=== PATIENT | female | born 1975 | race American Indian/Alaskan Native ===

== ENCOUNTER 2016-12-19 09:45 | Inpatient (IN) | payer SELFPAY ==
--- NOTE | 2016-12-19 10:56 | Emergency Department Report ---
Chief Complaint: Abdominal Pain Stated Complaint: CONSTIPATION Time Seen by Provider: 12/19/16 10:54 - HPI History of Present Illness: Patient here complaining of constipation for 3 weeks. She said she's had it happened to her before and she had to be disimpacted. Patient has a history of scleroderma and constipation. She denies any abdominal pain and said that she' s tried several laxatives without any relief. Denies any fever or chills. Denies any urinary burning frequency or urgency. Patient said it's difficult to get lab work on her CBC is ultrasound to find her vein in her neck to draw labs. - ROS Review of Systems: All systems are negative unless stated in HPI above. - Exam Vital Signs: Vital Signs 12/19/16 10:35 Temperature 98.2 F Pulse Rate 130 H Respiratory 20 Rate Blood Pressure 131/87 O2 Sat by Pulse 98 Oximetry Physical Exam: This is a 5-year-old female well-nourished well-developed in no acute distress. Abdomen: Tender to palpate in all quadrants, no guarding or rebound tenderness. Mildly distended and no CVA tenderness. Audible bowel sounds. MSE screening note: Focused history and physical exam performed. Due to findings the following was ordered:see mdm ED Medical Decision Making - Medical Decision Making Medical decision making: Patient seen by provider in triage area. Appropriate protocol activated and patient to main ED to be seen by physician. ED Disposition for MSE Condition: Stable Instructions: Abdominal Pain (ED)
--- NOTE | 2016-12-19 11:46 | XRay Report ---
ABDOMEN RADIOGRAPHS INDICATION: Constipation. COMPARISON: 05/17/2014 FINDINGS: Frontal abdominal radiographs demonstrate large colonic stool, greatest along the descending colon and much increased since the prior exam. No definite focal suspicious opacifications, pneumatosis or pneumoperitoneum. Stable cholecystectomy clips. Clear visualized lung bases. Unremarkable bones. CONCLUSION: Constipation and cholecystectomy, as described. Please correlate. Thank you for the opportunity to participate in this patient's care.
[2016-12-19 14:11] LABS: Bacteria,Urine 1+ /HPF (Negative); Bilirubin,Urine NEG (Negative); Blood,Urine MOD (Negative); Granular Casts,Urine 1 /LPF; Ketones,Urine 80 mg/dL (Negative); Leukocyte Esterase,Urine SM (Negative); Mucus,Urine 1+ /HPF; Nitrite,Urine NEG (Negative); Urobilinogen,Urine < 2.0 mg/dL (<2.0)
--- NOTE | 2016-12-20 00:07 | Emergency Department Report ---
ED General Adult HPI - General Chief complaint: Abdominal Pain Stated complaint: CONSTIPATION Time Seen by Provider: 12/19/16 10:54 Source: patient Mode of arrival: Ambulatory Limitations: No Limitations - History of Present Illness Initial comments: 41-year-old female presents to the emergency department complaining of constipation. Patient states she has not had a bowel movement in 3 weeks. She has been using an herbal supplement without relief. Her primary care doctor prescribed MiraLAX yesterday, again with no relief. She denies abdominal pain, nausea, or vomiting. Patient reports she has had a history of constipation requiring disimpaction. There are no other complaints. -: Gradual, week(s) (3) Severity scale (0 -10): 0 Improves with: none Worsens with: none Associated Symptoms: denies other symptoms - Related Data Home Medications Medication Instructions Recorded Confirmed Last Taken No Known Home Medications [No 05/16/14 12/20/16 Unknown Reported Home Medications] Allergies Allergy/AdvReac Type Severity Reaction Status Date / Time No Known Allergies Allergy Unverified 05/16/14 13:37 ED Review of Systems ROS: Stated complaint: CONSTIPATION Other details as noted in HPI Comment: All other systems reviewed and negative Gastrointestinal: constipation ED Past Medical Hx - Past Medical History Previous Medical History?: Yes Hx Congestive Heart Failure: No Hx Diabetes: No Hx Asthma: No Hx COPD: No Additional medical history: scleroderma, Constipation - Surgical History Past Surgical History?: Yes Additional Surgical History: Cholecystectomy - Family History Family history: no significant - Social History Smoking Status: Never Smoker Substance Use Type: Non Opiate Pain, Prescribed, Other - Medications Home Medications: Home Medications Medication Instructions Recorded Confirmed Last Taken Type No Known Home Medications [No 05/16/14 12/20/16 Unknown History Reported Home Medications] ED Physical Exam - General Limitations: No Limitations General appearance: alert, in no apparent distress - Head Head exam: Present: atraumatic, normocephalic - Eye Eye exam: Present: normal appearance, PERRL, EOMI - ENT ENT exam: Present: normal exam, normal orophraynx, mucous membranes moist - Neck Neck exam: Present: normal inspection, full ROM. Absent: tenderness - Respiratory Respiratory exam: Present: normal lung sounds bilaterally. Absent: respiratory distress - Cardiovascular Cardiovascular Exam: Present: normal rhythm, tachycardia, normal heart sounds - GI/Abdominal GI/Abdominal exam: Present: soft, diminished bowel sounds. Absent: distended, tenderness - Rectal Rectal exam: Present: normal inspection, normal rectal tone, heme (-) stool, other (large amount of stool noted in the proximal rectal vault. This stool is barely palpable on digital rectal exam.) - Extremities Exam Extremities exam: Present: normal inspection, full ROM. Absent: tenderness - Back Exam Back exam: Present: normal inspection, full ROM. Absent: tenderness - Neurological Exam Neurological exam: Present: alert, oriented X3. Absent: motor sensory deficit - Skin Skin exam: Present: warm, dry, other (sclerotic skin changes noted consistent with scleroderma.) ED Course Vital Signs 12/19/16 12/19/16 12/20/16 10:35 11:01 00:34 Temperature 98.2 F Pulse Rate 130 H 118 H 110 H Respiratory 20 18 Rate Blood Pressure 131/87 Blood Pressure 131/85 [Left] O2 Sat by Pulse 98 99 Oximetry 12/20/16 12/20/16 12/20/16 00:38 02:00 04:00 Temperature Pulse Rate 108 H 106 H Respiratory 18 18 18 Rate Blood Pressure Blood Pressure 128/80 128/82 [Left] O2 Sat by Pulse 99 99 99 Oximetry 12/20/16 12/20/16 12/20/16 06:00 07:20 07:25 Temperature 98.1 F Pulse Rate 103 H 98 H Respiratory 18 20 Rate Blood Pressure Blood Pressure 128/80 [Left] O2 Sat by Pulse 99 100 100 Oximetry 12/20/16 07:31 Temperature Pulse Rate Respiratory Rate Blood Pressure 121/72 Blood Pressure [Left] O2 Sat by Pulse 100 Oximetry - Reevaluation(s) Reevaluation #1: 12/20/16 00:19 I do not feel that the patient's stool is amenable to her manual disimpaction at this time due to its proximal location. Attempting soapsuds enema. Reevaluation #2: 12/20/16 14:57 Soap suds enema was unsuccessful last night. Patient was admitted to the hospitalist for GI consultation and further management. - EJ/Peripheral Line Arm L Time Out Performed: Yes Indications: nurses unable to establis Skin Cleansed in Sterile Fashion: Yes Size: 20 Dressing Placed: Tegaderm, other (Steri-Strips) Patient Tolerated Procedure: well Additional Comments: Ultrasound was used to place a peripheral IV ED Medical Decision Making - Lab Data Result diagrams: 12/20/16 02:00 - Differential Diagnosis constipation, fecal impaction, dehydration Critical care attestation.: If time is entered above; I have spent that time in minutes in the direct care of this critically ill patient, excluding procedure time. ED Disposition Clinical Impression: Constipation by delayed colonic transit, Scleroderma Disposition: OP ADMITTED IP TO THIS HOSP Is pt being admited?: Yes Condition: Stable
[2016-12-20] MEDS ORDERED: NACL 0.9% 1000 ML 1,000 ML IV ONE (01:36)
--- NOTE | 2016-12-20 01:54 | Admit Criteria Form ---
Admission Criteria Documentation: ABDOMINAL PAIN: OBSERVATION CARE USE THIS FORM ONLY WHEN INPATIENT ADMISSION CRITERIA ARE NOT MET. (Place X for any and all applicable criteria): Placement for observation care is indicated for a patient with ANY ONE of the following(1)(2)(3)(4)(5))(6): []I. Suspected condition requiring continued monitoring (e.g., ectopic , appendicitis) [A] []II. Undiagnosed pain after evaluation and initial treatment with ANY ONE of the following: []a) Continued pain unrelieved by symptomatic treatment []b) Patient unable to maintain hydration status []c) Concerning finding on examination (e.g., increasing tenderness, focal abdominal finding) or diagnostic testing (e.g., air fluid level on x-ray) []III. A child whose situation includes ANY ONE of the following: []a) Clinical response to outpatient therapy uncertain []b) Outpatient supervision by parents or caregivers uncertain [X]IV. Other observation care needs. (Also use General Criteria: Observation Care). The original [facility] [employer] content created by [facility] [employer] has been revised. The portions of the content which have been revised are identified through the use of italic text, and [facility] has neither reviewed nor approved the modified material. All other unmodified content is copyright [facility]. Please see references footnoted in the original [facility] edition 2015 Admission Criteria Met: Yes
[2016-12-20 02:50] LABS: BUN/Creatinine Ratio TNR; Blood Urea Nitrogen TNR mg/dL (7-17); Calcium TNR mg/dL (8.4-10.2); Carbon Dioxide TNR mmol/L (22-30); Chloride TNR mmol/L (98-107); Glucose TNR mg/dL (65-100); Sodium TNR mmol/L (137-145)
[2016-12-20 02:51] LABS: Alanine Aminotransferase TNR units/L (7-56); Albumin TNR g/dL (3.9-5); Albumin/Globulin Ratio TNR %; Alkaline Phosphatase TNR units/L (35-129); Anion Gap TNR mmol/L; Bilirubin,Total TNR mg/dL (0.1-1.2); Potassium TNR mmol/L (3.6-5.0); Total Protein TNR g/dL (6.3-8.2)
[2016-12-20] MEDS ORDERED: FLEET PR ONE (05:18)
--- NOTE | 2016-12-20 05:48 | History and Physical Report ---
History of Present Illness Date of examination: 12/20/16 History of present illness: 41-year-old woman history of scleroderma comes emergency room with complaints of constipation. She has not had a bowel movement 3 weeks. She has been using herbal supplements, MiraLAX without any effect. She had soapsuds enema in the emergency room, no bowel movements as far. Also complaining of bilateral leg discomfort, she is concerned about clots in her legs Patient denies chest pain, palpitation, shortness of breath, cough, abdominal pain, hematochezia, dysuria, frequency, focal weakness, dysarthria, fever chills , polydipsia polyuria, hot or cold intolerance, easy bruisability, or rash or bleeding from mucosal membrane, rhinorrhea, epistaxis, earache, tinnitus, blurry vision, eye discharge, anxiety, depression. Other review of systems negative PAST SURGICAL HISTORY: Cholecystectomy SOCIAL HISTORY: Denies alcohol, tobacco, drugs FAMILY HISTORY: Hypertension Medications and Allergies Allergies Allergy/AdvReac Type Severity Reaction Status Date / Time No Known Allergies Allergy Unverified 05/16/14 13:37 Home Medications Medication Instructions Recorded Confirmed Last Taken Type No Known Home Medications [No 05/16/14 05/16/14 Unknown History Reported Home Medications] Exam - Physical Exam Narrative exam: Gen. appearance: Patient lying in bed, no apparent distress HEENT: Normocephalic, atraumatic, pupils equally round and reactive to light, extraocular movement intact, and no sclericterus,. No JVD or thyromegaly or nodule,neck supple, no carotid bruit ,mucous membranes moist, no exudate or erythema Heart: S1, S2, regular rate and rhythm Lungs: Clear to auscultation bilaterally, breathing comfortable Abdomen: Positive bowel sounds, nontender, nondistended, no organomegaly Extremity: No edema, cyanosis, clubbing Skin: No rash, nodules, warm, dry Neuro: Oriented 3, cranial nerves II-12 intact, speech is fluent, motor and sensory intact - Constitutional Vitals: Temp Pulse Resp BP Pulse Ox 98.2 F 110 H 18 131/85 99 12/19/16 10:35 12/20/16 00:34 12/20/16 00:38 12/20/16 00:34 12/20/16 00:38 Results - Labs CBC & Chem 7: 12/20/16 02:00 - Imaging and Cardiology EKG: image reviewed Abdominal x-ray: report reviewed Assessment and Plan Fecal impaction Leg discomfort rule out DVT Scleroderma Admit medicine Start IV fluids, give further soapsuds enema Consult GI, obtain Doppler of lower extremity, start DVT prophylaxis
[2016-12-20] MEDS ORDERED: TYLENOL PO PRN (08:00)
[2016-12-20] MEDS ORDERED: MILK OF MAGNESIA PO PRN (08:00)
--- NOTE | 2016-12-20 08:13 | Admit Criteria Form ---
Admission Criteria Documentation: GASTROENTEROLOGY GRG Clinical Indications for Admission to Inpatient Care (Place 'X' for any and all applicable criteria): Hospital admission is needed for appropriate care of the patient because of ANY ONE of the following: [ ]I. Hemoperitoneum(7) [ ]II. Ascites requiring acute treatment indicated by ANY ONE of the following( 8)(9): [ ]a) Hemodynamic instability remaining after emergency or observation level care (as appropriate) [ ]b) Peritoneal signs present (eg, abdominal rigidity, rebound tenderness, absent bowel sounds) [ ]c) Tachypnea, Hypoxemia, or other respiratory symptoms remain after emergency or observation level care (as appropriate) [ ]d) Suspected infected ascites as indicated by ANY ONE of the following: [ ]i) Temperature greater than 100 degrees F (37.8 degrees C) [ ]ii) Abdominal pain or tenderness not relieved by paracentesis [ ]iii) Systemic signs of infection (eg, elevated WBC count, fever) [ ]iv) Ascitic fluid analysis consistent with infection ( eg, elevated WBC count): [ ]v) Vital sign abnormality [ ]III. Suspected acute intra-abdominal process indicated by ANY ONE of the following(1)(2)(3)(4)(5): [ ]a) Hemodynamic instability [ ]b) Peritoneal signs present (eg, abdominal rigidity, rebound tenderness, absent bowel sounds) [ ]c) Bowel obstruction suspected (eg, severe vomiting, abdominal distension) [ ]d) Suspected mesenteric ischemia or ischemic colitis(6) [ ]e) Other signs or symptoms of acute abdominal disease (eg, severe pain, free air): [ ]IV. Severe liver disease indicated by ANY ONE of the following(8)(9)(10)(11)( 12)(13)(14): [ ]a) Acute hepatitis (eg, transaminase level greater than 1000 IU/L) [ ]b) Acute elevation of prothrombin time to more than 50% above normal or INR greater than 1.5 [ ]c) Bilirubin greater than 20 mg/dL (342 micromoles/L) (15) [ ]d) New-onset or worsening hepatic encephalopathy [ ]e) Acute liver necrosis [ ]f) Vomiting or dehydration that is severe of persistent [ ]g) Hemodynamic instability due to liver disease [ ]h) Acute renal failure [ ]i) Hepatic abscess [ ]j) Dehydration that is severe or persistent [ ]k) Hepatic hydrothorax(21) [ ]l) Other indications of severe liver disease (eg, persistent fever , ingestion of hepatotoxin) [ ]V. Severe diarrhea indicated by ANY ONE of the following(17)(18)(19)(20)(21)( 22)(23): [ ]a) High fever or other high-risk infection situation [ ]b) Intractable bloody diarrhea (eg, more than 6 bloody stools per day) [ ]c) Suspected Clostridium difficile-associated diarrhea(24) [ ]d) Change in mental status that persists after emergency or observation level care (as appropriate) [ ]e) Severe dehydration (eg, greater than 9% loss of body weight in children) [ ]f) Inability to maintain hydration [ ]g) Peritoneal signs present (eg, abdominal rigidity, rebound tenderness, absent bowel sounds) [ ]h) Abdominal ischemia suspected(6) [ ]i) Hemodynamic instability that persists after emergency or observation level care (as appropriate) [ ]j) Severe electrolyte abnormalities requiring inpatient care [ ]k) Acute renal failure [ ]. Suspected toxic megacolon(5)(6) [ ]VII.Severe dysphagia indicated by ANY ONE of the following(25)(26): [ ]a) Suspected esophageal perforation or fistula(27) [ ]b) Suspected cause that requires inpatient care (eg, caustic ingestion, severe esophagitis) (28) [ ]c) Severe dehydration (eg, greater than 9% loss of body weight in children) [ ]d) Inability to manage secretions or maintain hydration [ ]e) Hemodynamic instability that persists after emergency or observation level care (as appropriate) [ ]f) Severe electrolyte abnormalities requiring inpatient care [ ]g) Acute renal failure [ ]VIII.Vomiting and ANY ONE of the following (29)(30)(31)(32): [ ]a) High fever or other high-risk infection situation [ ]b) Change in mental status that persists after emergency or observation level care (as appropriate) [ ]c) Severe dehydration (e.g., greater than 9% loss of body weight in children) [ ]d) Peritoneal signs present (e.g., abdominal rigidity, rebound tenderness, absent bowel sounds) [ ]e) Hemodynamic instability that persists after emergency or observation level care (as appropriate) [ ]f) Severe electrolyte abnormalities requiring inpatient care [ ]g) Acute renal failure [ ]h) Bowel obstruction suspected (e.g., severe vomiting, abdominal distension) [ ]i) Vomiting that is severe or persistent after medical treatment [ ]IX. Significant dehydration indicated by ANY ONE of the following(23)(24)(25) [ ]a) Clinical findings of severe dehydration indicated by ANY ONE of the following: [ ]i) Acute loss of weight from baseline (5% of body weight in adults, 9% in pediatric patients) [ ]ii) Hemodynamic instability [ ]iii) Acute renal failure [ ]iv) Serum sodium greater than 150 mEq/L (mmol/L) [ ]b) Dehydration that is persistent indicated by ALL of the following: [ ]i) Oral rehydration therapy not tolerated or insufficient to adequately correct dehydration [ ]ii) Appropriate intravenous treatment (eg, fluids) does not readily correct dehydration hours of (ie, after 12 to 24 of treatment) [ ]X. Gastroparesis and ANY ONE of the following(37)(38)(39): [ ]a) Dehydration that is severe or persistent [ ]b) Severe electrolyte abnormalities requiring inpatient care [ ]c) Acute renal failure [ ]d) Vomiting that is severe or persistent [ ]XI. Complications of transplanted liver indicated by ANY ONE of the following (40)(41): [ ]a) Acute graft rejection requiring inpatient management (eg, intravenous immunosuppression)(42) [ ]b) Failure of transplanted liver as indicated by ANY ONE of the following: [ ]i) Acute hepatitis (eg, transaminase level greater than 1000 International Units per liter (IU/L)) [ ]ii) Acute elevation of prothrombin time to more than 50% above baseline or INR greater than 1.5 [ ]iii) Bilirubin greater than 20 mg/dL (342 micromoles/L) [ ]iv) New-onset or worsening hepatic encephalopathy [ ]v) Acute elevation of serum ammonia level (eg, greater than 210 mcg/dL (150 micromoles/L)) [ ]vi) Acute liver necrosis [ ]c) Infection requiring inpatient management (eg, Hemodynamic instability, need for intravenous antimicrobial treatment)(43)(44)(45)(46)(47)(48)(49)(50) [ ]d) Other complication of transplanted liver (eg, thrombosis, autoimmune hepatitis, variceal bleeding) requiring inpatient management(51)(52) [ ]XII Complications of transplanted pancreas indicated by ANY ONE of the following(53): [ ]a) Acute graft rejection requiring inpatient management (eg, intravenous immunosuppression)(42)(54) [ ]b) Failure of transplanted pancreas as indicated by ANY ONE of the following: [ ]i) Serum amylase greater than 3 times the upper limit of normal or baseline [ ]ii) Serum lipase greater than 3 times the upper limit of normal or baseline [ ]iii) Imaging findings consistent with pancreatic inflammation or necrosis [ ]c) Infection requiring inpatient management (eg, Hemodynamic instability, need for intravenous antimicrobial treatment)(43)(44)(45)(46)(47)(48)(49)(50) [ ]d) Other complication of transplanted liver (eg, thrombosis, autoimmune hepatitis, variceal bleeding) requiring inpatient management(51)(52) [X]X. Gastroenterology condition and ALL of the following: [X]a) Symptom or finding for which emergency and observation care have failed or are not considered appropriate (Also use General Criteria: Observation Care as appropriate) [X]b) Presence of ANY ONE of the following: [X]i) A General Admission Criteria [ ]ii) A Pediatric General Admission Criteria. The original [facility] [employer] content created by [facility] [employer] has been revised. The portions of the content which have been revised are identified through the use of italic text or in bold,and [facility] has neither reviewed nor approved the modified material. All other unmodified content is copyright [facility]. Please see references footnoted in the original [facility] edition 2016 Admission Criteria Met: Yes
[2016-12-20] MEDS: ZOFRAN IV PRN (09:10)
[2016-12-20] MEDS ORDERED: LOVENOX SUB-Q SCH (10:00)
[2016-12-20] MEDS ORDERED: DULCOLAX PR PRN (10:00)
[2016-12-20] MEDS ORDERED: ZOFRAN PO PRN (11:02)
[2016-12-20] MEDS ORDERED: ZOFRAN ODT PO PRN (12:14)
--- NOTE | 2016-12-20 13:42 | Gastroenterology Consultation ---
<SHARYN LARES - Last Filed: 12/20/16 14:05> History of Present Illness - Reason for Consult Consult date: 12/20/16 Requesting physician: UCHE SHEPARD - History of Present Illness Ms. Langford is a 41 y/o female admitted with 3 week hx of constipation. She reports she has not had a BM in 3 weeks. She has baseline constipation since 2013 and typically has to take an herbal medication twice per week for BM. She also states she is now vomiting. She has a hx of sigmoid volvulous that resolved on it own in 2013 during attempted colonoscopy. She has a hx of scleroderma. Abdominal Xray significant for constipation. Past History Past Medical History: other (scleroderma) Past Surgical History: cholecystectomy Social history: denies: smoking, alcohol abuse Family history: hypertension Medications and Allergies Allergies Allergy/AdvReac Type Severity Reaction Status Date / Time No Known Allergies Allergy Unverified 05/16/14 13:37 Home Medications Medication Instructions Recorded Confirmed Last Taken Type No Known Home Medications [No 05/16/14 12/20/16 Unknown History Reported Home Medications] Active Meds: Active Medications Acetaminophen (Tylenol) 650 mg PO Q4H PRN PRN Reason: Pain MILD(1-3)/Fever >100.5/KILLIAN Bisacodyl (Dulcolax) 10 mg MN QDAY PRN PRN Reason: Constipation unrelieved by MOM Enoxaparin Sodium (Lovenox) 40 mg SUB-Q QDAY LYNDSAY Last Admin: 12/20/16 12:15 Dose: Not Given Sodium Chloride (Nacl 0.45% 1000 Ml) 1,000 mls @ 125 mls/hr IV DIRECT LYNDSAY Magnesium Hydroxide (Milk Of Magnesia) 30 ml PO Q4H PRN PRN Reason: Constipation Ondansetron HCl (Zofran) 4 mg IV Q8H PRN PRN Reason: Nausea And Vomiting Last Admin: 12/20/16 09:10 Dose: 4 mg Ondansetron HCl (Zofran Odt) 4 mg PO Q8H PRN PRN Reason: Nausea And Vomiting Last Admin: 12/20/16 12:19 Dose: 4 mg Review of Systems - Review of Systems All systems: negative Gastrointestinal: abdominal pain, vomiting, constipation Exam - Constitutional Vital Signs: Temp Pulse Resp BP Pulse Ox 98.1 F 98 H 20 121/72 100 01/19/17 07:20 12/20/16 07:20 12/20/16 07:20 12/20/16 07:31 12/20/16 07:31 General appearance: no acute distress - EENT Eyes: EOM intact ENT: hearing intact - Neck Neck: supple - Respiratory Respiratory: bilateral: CTA - Cardiovascular Rhythm: regular Heart Sounds: Present: S1 & S2 - Gastrointestinal General gastrointestinal: Present: soft, distended, hypoactive bowel sounds - Integumentary Integumentary: Present: warm, dry - Neurologic Neurological: alert and oriented x3 - Psychiatric Psychiatric: appropriate mood/affect, cooperative - Labs CBC & Chem 7: 12/20/16 02:00 Assessment and Plan 1. Constipation per Abdominal xray (obstipation) -Patient typically takes herbal medications for BM twice per week. No BM x 3 weeks. -Incomplete colonoscopy 2013 for resolved sigmoid volvulous. -Start PO golyte prep. Patient is to "sip" throughout day. <ELIZ DURANT - Last Filed: 12/20/16 17:48> History of Present Illness - History of Present Illness GI Attending: I have performed a face to face evaluation on Ms. Langford and agree with the above note of Hoda Lares NP. I know her from prior admissions and she had a sigmoid volvulus at that time. She has scleroderma with resultant bowel dysmotility, which explains her constipation. She may take a Go-Lytely prep and will re-assess in the AM. Once she starts to have BM's, will start her on a regular bowel regimen with Miralax. OK to have clears. Medications and Allergies Active Meds: Active Medications Acetaminophen (Tylenol) 650 mg PO Q4H PRN PRN Reason: Pain MILD(1-3)/Fever >100.5/KILLIAN Bisacodyl (Dulcolax) 10 mg MN QDAY PRN PRN Reason: Constipation unrelieved by MOM Enoxaparin Sodium (Lovenox) 40 mg SUB-Q QDAY LYNDSAY Last Admin: 12/20/16 12:15 Dose: Not Given Sodium Chloride (Nacl 0.45% 1000 Ml) 1,000 mls @ 125 mls/hr IV DIRECT LYNDSAY Last Admin: 12/20/16 17:10 Dose: 125 mls/hr Magnesium Hydroxide (Milk Of Magnesia) 30 ml PO Q4H PRN PRN Reason: Constipation Ondansetron HCl (Zofran) 4 mg IV Q8H PRN PRN Reason: Nausea And Vomiting Last Admin: 12/20/16 09:10 Dose: 4 mg Ondansetron HCl (Zofran Odt) 4 mg PO Q8H PRN PRN Reason: Nausea And Vomiting Last Admin: 12/20/16 12:19 Dose: 4 mg Exam - Constitutional Vital Signs: Temp Pulse Resp BP Pulse Ox 98.1 F 98 H 20 121/72 100 12/20/16 07:20 12/20/16 07:20 12/20/16 07:20 12/20/16 07:31 12/20/16 07:31 - Labs CBC & Chem 7: 12/20/16 16:50 Lab Results: Laboratory Results - last 24 hr 12/20/16 16:50 Sodium 141 Potassium 3.5 L Chloride 103.5 Carbon Dioxide 20 L Anion Gap 21 BUN 2 L Creatinine 0.5 L Estimated GFR > 60 BUN/Creatinine Ratio 4.00 Glucose 104 H Calcium 8.5 Total Bilirubin 0.3 AST 11 ALT 9 Alkaline Phosphatase 66 Total Protein 7.2 Albumin 3.3 L Albumin/Globulin Ratio 0.8
[2016-12-20] MEDS ORDERED: GOLYTELY PO ONE (15:00)
[2016-12-20] MEDS: NACL 0.45% 1000 ML 1,000 ML IV SCH (17:10)
[2016-12-20 17:45] LABS: Alanine Aminotransferase 9 units/L (7-56); Albumin 3.3 g/dL (3.9-5); Albumin/Globulin Ratio 0.8 %; Alkaline Phosphatase 66 units/L (35-129); Anion Gap 21 mmol/L; Bilirubin,Total 0.3 mg/dL (0.1-1.2); Blood Urea Nitrogen 2 mg/dL (7-17); Calcium 8.5 mg/dL (8.4-10.2); Carbon Dioxide 20 mmol/L (22-30); Chloride 103.5 mmol/L (98-107); Glucose 104 mg/dL (65-100); Potassium 3.5 mmol/L (3.6-5.0); Sodium 141 mmol/L (137-145); Total Protein 7.2 g/dL (6.3-8.2)
[2016-12-20 17:47] LABS: Basophils % (Auto) 0.3 % (0.0-1.8); Eosinophils % (Auto) 0.8 % (0.0-4.3); Hematocrit 35.1 % (30.3-42.9); Hemoglobin 11.5 gm/dl (10.1-14.3); Mean Corpuscular HGB Conc 33 % (30-34); Mean Corpuscular Hemoglobin 26 pg (28-32); Mean Corpuscular Volume 79 fl (79-97); Platelet Count 206 K/mm3 (140-440); Red Blood Count 4.43 M/mm3 (3.65-5.03); Red Cell Distribution Width 15.3 % (13.2-15.2)
[2016-12-20] MEDS: PERCOCET 5/325 PO PRN (21:26)
[2016-12-20] MEDS: LOVENOX SUB-Q SCH (21:27)
[2016-12-21] MEDS: ZOFRAN IV PRN ×2 (01:12→13:40)
[2016-12-21] MEDS: NACL 0.45% 1000 ML 1,000 ML IV SCH ×3 (02:23→22:24)
--- NOTE | 2016-12-21 07:19 | Gastroenterology Progress Note ---
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 She responded well to the bowel prep. Rec: 1) Pt informed to start Miralax 17gm 1-2x/day upon discharge No further GI w/u needed. Please call with questions. Thank you! Subjective Date of service: 12/21/16 Principal diagnosis: Constipation Interval history: Pt seen/examined this AM. Had multiple BM's with Golytely. No other acute overnight events. Objective - Constitutional Vitals: Temp Pulse Resp BP Pulse Ox 97.4 F L 105 H 20 141/92 100 12/21/16 02:04 12/21/16 02:04 12/21/16 02:04 12/21/16 02:04 12/20/16 20:54 General appearance: no acute distress, other (classic phenotypic features of scleroderma) - Neck Neck: supple - Respiratory Respiratory: bilateral: CTA - Cardiovascular Rhythm: regular Heart Sounds: Present: S1 & S2 - Extremities Extremities: No edema - Gastrointestinal General gastrointestinal: Present: soft, non-tender, non-distended, normal bowel sounds - Neurologic Neurological: alert and oriented x3 - Psychiatric Psychiatric: appropriate mood/affect - Labs CBC & Chem 7: 12/20/16 16:50 12/20/16 16:50 Labs: Laboratory Results - last 24 hr 12/20/16 12/20/16 16:50 16:50 WBC 16.0 H RBC 4.43 Hgb 11.5 Hct 35.1 MCV 79 MCH 26 L MCHC 33 RDW 15.3 H Plt Count 206 Lymph % (Auto) 7.6 L [place] % (Auto) 8.0 H Eos % (Auto) 0.8 Baso % (Auto) 0.3 Lymph # 1.2 [place] # 1.3 H Eos # 0.1 Baso # 0.0 Seg Neutrophils % 83.3 H Seg Neutrophils # 13.3 H Sodium 141 Potassium 3.5 L Chloride 103.5 Carbon Dioxide 20 L Anion Gap 21 BUN 2 L Creatinine 0.5 L Estimated GFR > 60 BUN/Creatinine Ratio 4.00 Glucose 104 H Calcium 8.5 Total Bilirubin 0.3 AST 11 ALT 9 Alkaline Phosphatase 66 Total Protein 7.2 Albumin 3.3 L Albumin/Globulin Ratio 0.8
[2016-12-21 10:22] LABS: BUN/Creatinine Ratio 4.28; Blood Urea Nitrogen 3 mg/dL (7-17); Calcium 8.3 mg/dL (8.4-10.2); Carbon Dioxide 23 mmol/L (22-30); Glucose 123 mg/dL (65-100)
[2016-12-21 10:23] LABS: Potassium 3.4 mmol/L (3.6-5.0); Sodium 140 mmol/L (137-145)
[2016-12-21 10:33] LABS: Anion Gap 17 mmol/L
[2016-12-21] MEDS: KCL 10MEQ/100ML 100 ML IV SCH ×3 (13:20→17:54)
[2016-12-21] MEDS: PERCOCET 5/325 PO PRN (13:40)
--- NOTE | 2016-12-21 20:31 | Progress Note ---
Assessment and Plan Assessment and plan: Fecal impaction Leg discomfort rule out DVT Scleroderma Hospitalist Physical - Constitutional Vitals: Temp Pulse Resp BP Pulse Ox 97.6 F 97 H 16 127/75 100 12/21/16 16:30 12/21/16 16:30 12/21/16 16:30 12/21/16 16:30 12/21/16 16:30 Results - Labs CBC & Chem 7: 12/20/16 16:50 12/21/16 09:45 Labs: Laboratory Last Values WBC 16.0 K/mm3 (4.5-11.0) H 12/20/16 16:50 RBC 4.43 M/mm3 (3.65-5.03) 12/20/16 16:50 Hgb 11.5 gm/dl (10.1-14.3) 12/20/16 16:50 Hct 35.1 % (30.3-42.9) 12/20/16 16:50 MCV 79 fl (79-97) 12/20/16 16:50 MCH 26 pg (28-32) L 12/20/16 16:50 MCHC 33 % (30-34) 12/20/16 16:50 RDW 15.3 % (13.2-15.2) H 12/20/16 16:50 Plt Count 206 K/mm3 (140-440) 12/20/16 16:50 Lymph % (Auto) 7.6 % (13.4-35.0) L 12/20/16 16:50 [place] % (Auto) 8.0 % (0.0-7.3) H 12/20/16 16:50 Eos % (Auto) 0.8 % (0.0-4.3) 12/20/16 16:50 Baso % (Auto) 0.3 % (0.0-1.8) 12/20/16 16:50 Lymph # 1.2 K/mm3 (1.2-5.4) 12/20/16 16:50 [place] # 1.3 K/mm3 (0.0-0.8) H 12/20/16 16:50 Eos # 0.1 K/mm3 (0.0-0.4) 12/20/16 16:50 Baso # 0.0 K/mm3 (0.0-0.1) 12/20/16 16:50 Seg Neutrophils % 83.3 % (40.0-70.0) H 12/20/16 16:50 Seg Neutrophils # 13.3 K/mm3 (1.8-7.7) H 12/20/16 16:50 Sodium 140 mmol/L (137-145) 12/21/16 09:45 Potassium 3.4 mmol/L (3.6-5.0) L 12/21/16 09:45 Chloride 103.0 mmol/L (98-107) 12/21/16 09:45 Carbon Dioxide 23 mmol/L (22-30) 12/21/16 09:45 Anion Gap 17 mmol/L 12/21/16 09:45 BUN 3 mg/dL (7-17) L 12/21/16 09:45 Creatinine 0.7 mg/dL (0.7-1.2) 12/21/16 09:45 Estimated GFR > 60 ml/min 12/21/16 09:45 BUN/Creatinine Ratio 4.28 % 12/21/16 09:45 Glucose 123 mg/dL (65-100) H 12/21/16 09:45 Calcium 8.3 mg/dL (8.4-10.2) L 12/21/16 09:45 Total Bilirubin 0.3 mg/dL (0.1-1.2) 12/20/16 16:50 AST 11 units/L (5-40) 12/20/16 16:50 ALT 9 units/L (7-56) 12/20/16 16:50 Alkaline Phosphatase 66 units/L (35-129) 12/20/16 16:50 Total Protein 7.2 g/dL (6.3-8.2) 12/20/16 16:50 Albumin 3.3 g/dL (3.9-5) L 12/20/16 16:50 Albumin/Globulin Ratio 0.8 % 12/20/16 16:50 Urine Color Yellow (Yellow) 12/19/16 12:51 Urine Turbidity Clear (Clear) 12/19/16 12:51 Urine pH 5.0 (5.0-7.0) 12/19/16 12:51 Ur Specific [place] 1.018 (1.003-1.030) 12/19/16 12:51 Urine Protein 100 mg/dl mg/dL (Negative) 12/19/16 12:51 Urine Glucose (UA) Neg mg/dL (Negative) 12/19/16 12:51 Urine Ketones 80 mg/dL (Negative) 12/19/16 12:51 Urine Blood Mod (Negative) 12/19/16 12:51 Urine Nitrite Neg (Negative) 12/19/16 12:51 Ur Reducing Substances Not Reportable 12/19/16 12:51 Urine Bilirubin Neg (Negative) 12/19/16 12:51 Urine Ictotest Not Reportable 12/19/16 12:51 Urine Urobilinogen < 2.0 mg/dL (<2.0) 12/19/16 12:51 Ur Leukocyte Esterase Sm (Negative) 12/19/16 12:51 Urine WBC (Auto) 6.0 /HPF (0.0-6.0) 12/19/16 12:51 Urine RBC (Auto) 60.0 /HPF (0.0-6.0) 12/19/16 12:51 U Epithel Cells (Auto) 2.0 /HPF (0-13.0) 12/19/16 12:51 Urine Bacteria (Auto) 1+ /HPF (Negative) 12/19/16 12:51 Hyaline Casts 2 /LPF 12/19/16 12:51 Granular Casts 1 /LPF 12/19/16 12:51 Urine Mucus 1+ /HPF 12/19/16 12:51 Urine HCG, Qual Negative (Negative) 12/19/16 12:51
[2016-12-21] MEDS: LOVENOX SUB-Q SCH (22:22)
[2016-12-22] MEDS: PERCOCET 5/325 PO PRN (03:28)
[2016-12-22] MEDS: NACL 0.45% 1000 ML 1,000 ML IV SCH (05:55)
[2016-12-22] MEDS ORDERED: CATHFLO IV ONE (10:00)
[2016-12-22] MEDS ORDERED: WATER FOR INJ (PF) 10 ML ONE (10:32)
[2016-12-22 12:08] LABS: Hematocrit 31.7 % (30.3-42.9); Hemoglobin 10.6 gm/dl (10.1-14.3); Mean Corpuscular HGB Conc 33 % (30-34); Mean Corpuscular Hemoglobin 26 pg (28-32); Mean Corpuscular Volume 79 fl (79-97); Platelet Count 196 K/mm3 (140-440); Red Blood Count 4.02 M/mm3 (3.65-5.03); Red Cell Distribution Width 15.3 % (13.2-15.2); White Blood Count 10.3 K/mm3 (4.5-11.0)
[2016-12-22 13:06] LABS: Blood Urea Nitrogen 3 mg/dL (7-17); Calcium 8.3 mg/dL (8.4-10.2); Carbon Dioxide 28 mmol/L (22-30); Chloride 102.1 mmol/L (98-107); Glucose 97 mg/dL (65-100); Potassium 3.6 mmol/L (3.6-5.0); Sodium 140 mmol/L (137-145)
[2016-12-22 13:10] LABS: Anion Gap 14 mmol/L
--- NOTE | 2016-12-22 13:37 | Discharge Summary ---
Providers - Providers Date of Admission: 12/20/16 05:19 Date of discharge: 12/22/16 Attending physician: UCHE SHEPARD 12/20/16 09:31 Consult to PICC Line RN [CONS] Routine Reason For Exam: unable to obtain IV access Type Line:: PICC Primary care physician: [employer] Hospitalization Condition: Stable Disposition: DISCHARGED TO HOME OR SELFCARE Time spent for discharge: 35 min Core Measure Documentation - Palliative Care Palliative Care/ Comfort Measures: Not Applicable - Core Measures Any of the following diagnoses?: none Exam - Constitutional Vitals: Temp Pulse Resp BP Pulse Ox 97.8 F 108 H 18 124/84 100 12/22/16 08:00 12/22/16 08:00 12/22/16 08:00 12/22/16 08:00 12/22/16 08:00 Plan Activity: advance as tolerated Diet: low cholesterol, low salt Follow up with: PRIMARY CARE, [Primary Care Provider] - 7 Days Prescriptions: Magnesium Hydroxide [Milk of Magnesia] 30 ml PO Q4H PRN #10 oral.liqd PRN Reason: Constipation Polyethylene Glycol 3350 [Miralax 3350] 17 gm PO BID #60 packet
[2016-12-22 14:36] VITALS: BP 129/80
== END 2016-12-22 15:00 | disposition home or self-care (01) | DRG 390 ==
LOC: ED 09:45 → 3A 12-20 05:19
PROVIDERS: ADMIT Internal Medicine; ATTEND Internal Medicine
PROC: 05HQ33Z Insertion of Infusion Device into Left External Jugular Vein, Percutaneous Approach (ICD-10-PCS; principal; 2016-12-19)
PROC: B544ZZA Ultrasonography of Left Jugular Veins, Guidance (ICD-10-PCS; 2016-12-19)
DX: K56.41 Fecal impaction (principal); M34.9 Systemic sclerosis, unspecified; Z90.49 Acquired absence of other specified parts of digestive tract; Z82.49 Family history of ischemic heart disease and other diseases of the circulatory system
CPT/HCPCS: 36415; 74020; 80048; 80053; 81001; 81025; 85025; 93970; 96361; 96374; J1650; J2405; J2997; J3480; J7030; Q0162

== ENCOUNTER 2022-05-08 09:47 | Emergency (ER) | payer OTHER ==
[2022-05-08] MEDS ORDERED: ASPIRIN 325 MG TAB PO ONE (11:35)
--- NOTE | 2022-05-08 12:29 | XRay Report ---
CHEST 2 VIEWS INDICATION: chest pain. COMPARISON: None FINDINGS: Support devices: None. Heart: Within normal limits. Lungs/Pleura: No acute air space or interstitial disease. No significant pleural effusion. Prominen t bowel distention partially imaged upper abdomen. IMPRESSION: 1. Lungs clear. 2. Prominent bowel distention appears to be predominantly colon. Signer Name: Presley Au MD Signed: 05/08/2022 12:25 PM Workstation Name: [id number]
--- NOTE | 2022-05-08 12:37 | Electrocardiograph Report ---
[facility] Test Date: 2022-05-08 Test Time: 11:53:53 Pat Name: JADIEL SOSA Department: Room: Gender: F [employer]: LIBRADO : 1975 Requested By: ED DOC Order Number: [id number] Reading MD: Iman Villa Measurements Intervals [place] Rate: 88 P: 73 SC: 154 QRS: 84 QRSD: 100 T: 110 QT: 362 QTc: 439 Interpretive Statements Sinus rhythm Nonspecific T abnormalities, lateral leads No previous ECG available for comparison Electronically Signed On 05-08-2022 12:37:38 EDT by Iman Villa
[2022-05-08 12:58] LABS: Basophils % (Auto) 0.6 % (0.0-1.8); Eosinophils # (Auto) 0.1 K/mm3 (0.0-0.4); Eosinophils % (Auto) 1.8 % (0.0-4.3); Hematocrit 40.7 % (30.3-42.9); Hemoglobin 13.4 gm/dl (10.1-14.3); Lymphocytes # (Auto) 1.1 K/mm3 (1.2-5.4); Lymphocytes % (Auto) 18.8 % (13.4-35.0); Mean Corpuscular HGB Conc 33 % (30-34); Mean Corpuscular Volume 85 fl (79-97); Monocytes # (Auto) 0.4 K/mm3 (0.0-0.8); Monocytes % (Auto) 6.7 % (0.0-7.3); Platelet Count 217 K/mm3 (140-440); Red Blood Count 4.79 M/mm3 (3.65-5.03); Red Cell Distribution Width 15.2 % (13.2-15.2)
[2022-05-08 13:19] LABS: Alanine Aminotransferase 18 units/L (7-56); Albumin 4.3 g/dL (3.9-5); Blood Urea Nitrogen 10 mg/dL (7-17); Calcium 9.9 mg/dL (8.4-10.2); Hemolysis Index 5
[2022-05-08 13:31] LABS: BUN/Creatinine Ratio 14
[2022-05-09] MEDS ORDERED: SODIUM CHLORIDE 0.9% 1000 ML 1,000 ML IV ONE (01:53)
[2022-05-09] MEDS ORDERED: ONDANSETRON 4 MG/2 ML INJ IV ONE (01:54)
--- NOTE | 2022-05-09 02:00 | Emergency Department Report ---
ED Abdominal Pain HPI - General Chief Complaint: Dyspnea/Respdistress Stated Complaint: ABD PAIN/N/V CONSITPATION Source: patient Mode of arrival: Ambulatory Limitations: No Limitations - History of Present Illness Initial Comments: Patient is a 47-year-old female with history of abdominal periumbilical hernia, constipation, and scleroderma who presents for abdominal pain stating I believe my bowels are twisted. Patient denies history of Crohn's. Did not require resection for hernia repair last year. Patient has follow-up with GI and 5 days for colonoscopy. Patient denies fevers or chills. However does endorse nausea. Symptoms are exacerbated by p.o. intake. There is secondary complaint of bloating. Patient is 47 and questions menopausal last menstrual cycle was October 2021. Patient endorses not sexually active. No concern for or STI. MD Complaint: abdominal pain - Related Data Previous Rx's Medication Instructions Recorded Last Taken Type Magnesium Hydroxide [Milk of 30 ml PO Q4H PRN #10 oral.liqd 12/22/16 Unknown Rx Magnesia] polyethylene glycoL 3350 [Miralax 17 gm PO BID #60 packet 12/22/16 Unknown Rx 3350] Simethicone [Gas-X Ultra Strength] 180 mg PO Q6H PRN #30 cap 05/09/22 Unknown Rx Allergies Allergy/AdvReac Type Severity Reaction Status Date / Time No Known Allergies Allergy Unverified 05/16/14 13:37 ED Review of Systems ROS: Stated complaint: ABD PAIN/N/V CONSITPATION Other details as noted in HPI ED Past Medical Hx - Past Medical History Previous Medical History?: Yes Hx Congestive Heart Failure: No Hx Diabetes: No Hx Deep Vein Thrombosis: No Hx Asthma: No Hx COPD: No Hx HIV: No Additional medical history: scleroderma, Constipation - Surgical History Past Surgical History?: Yes Hx Pacemaker: No Hx Internal Defibrillator: No Additional Surgical History: Cholecystectomy - Social History Smoking Status: Never Smoker - Medications Home Medications: Home Medications Medication Instructions Recorded Confirmed Last Taken Type Magnesium Hydroxide [Milk of 30 ml PO Q4H PRN #10 oral.liqd 12/22/16 Unknown Rx Magnesia] polyethylene glycoL 3350 [Miralax 17 gm PO BID #60 packet 12/22/16 Unknown Rx 3350] Simethicone [Gas-X Ultra Strength] 180 mg PO Q6H PRN #30 cap 05/09/22 Unknown Rx ED Physical Exam - General Limitations: No Limitations ED Course Vital Signs 05/08/22 11:32 Temperature 97.9 F Pulse Rate 73 Respiratory 16 Rate Blood Pressure 187/120 [Left] O2 Sat by Pulse 94 Oximetry ED Medical Decision Making - Lab Data Result diagrams: 05/08/22 12:33 05/08/22 12:33 Labs 05/08/22 05/08/22 05/08/22 12:33 12:33 14:49 WBC 5.8 RBC 4.79 Hgb 13.4 Hct 40.7 MCV 85 MCH 28 MCHC 33 RDW 15.2 Plt Count 217 Lymph % (Auto) 18.8 [place] % (Auto) 6.7 Eos % (Auto) 1.8 Baso % (Auto) 0.6 Lymph # (Auto) 1.1 L [place] # (Auto) 0.4 Eos # (Auto) 0.1 Baso # (Auto) 0.0 Seg Neutrophils % 72.1 H Seg Neutrophils # 4.2 Sodium 141 Potassium 3.6 Chloride 102.1 Carbon Dioxide 24 Anion Gap 19 BUN 10 Creatinine 0.7 Estimated GFR > 60 BUN/Creatinine Ratio 14 Glucose 98 Calcium 9.9 Total Bilirubin 1.30 H AST 25 ALT 18 Alkaline Phosphatase 78 Troponin T < 0.010 < 0.010 Total Protein 9.2 H Albumin 4.3 Albumin/Globulin Ratio 0.9 - EKG Data EKG shows normal: sinus rhythm Rate: normal - EKG Data When compared to previous EKG there are: no significant change Interpretation: nonspecific ST-T wave surinder SR with non specific Twave abnormalities. No STEMI interp by ed attending. 05/09/22 04:39 - Radiology Data Radiology results: report reviewed, image reviewed ABDOMEN 2 VIEWS INDICATION / CLINICAL INFORMATION: abdominal pain constipation. COMPARISON: Abdomen 12/19/2016 FINDINGS: TUBES / LINES: None. BOWEL GAS PATTERN: Moderately dilated gas-filled loops of colon characteristic for ileus. FREE AIR / EXTRALUMINAL GAS: None seen. ADDITIONAL FINDINGS: Cholecystectomy clips right upper quadrant. Midline ventral abdominal wall hernia mesh. CHEST: Visualized chest shows no significant abnormality. IMPRESSION: 1. Moderate colonic ileus. Signer Name: Jacky Bates MD Signed: 05/09/2022 2:47 AM Workstation Name: [id number] Transcribed By: TL Dictated By: Jacky Bates MD Electronically Authenticated By: Jacky Bates MD Signed Date/Time: 05/09/22246 DD/ 5 TD/TT: CT ABDOMEN AND PELVIS WITHOUT CONTRAST INDICATION: abd pain. TECHNIQUE: Axial CT images were obtained through the abdomen and pelvis without IV contrast. All CT scans at this location are performed using CT dose reduction for ALARA by means of automated exposure control. COMPARISON: None available. FINDINGS: LOWER CHEST: Mild bronchiectasis right middle and both lower lobes. LIVER: No significant abnormality. GALLBLADDER: Surgically absent BILE DUCTS: No significant abnormality. PANCREAS: No significant abnormality. SPLEEN: No significant abnormality. ADRENALS: No significant abnormality. RIGHT KIDNEY and URETER: No significant abnormality. LEFT KIDNEY and URETER: No significant abnormality. STOMACH and SMALL BOWEL: No significant abnormality. COLON: Pneumatosis sigmoid and ascending colon moderately dilated fluid-filled loops of colon. APPENDIX: Normal. PERITONEUM: No free fluid. No free air. No fluid collection. LYMPH NODES: No significant adenopathy. AORTA and ARTERIES: No significant abnormality. IVC and VEINS: No significant abnormality. URINARY BLADDER: No significant abnormality. REPRODUCTIVE ORGANS: No significant abnormality. ADDITIONAL FINDINGS: None. SKELETAL SYSTEM: No significant abnormality. IMPRESSION: 1. Colonic pneumatosis with fluid-filled moderately dilated loops of colon characteristic for ischemic colitis. No free air or portal vein gas . Please correlate with lactic acid levels. Signer Name: Jacky Bates MD Signed: 05/09/2022 3:20 AM Workstation Name: [id number] Transcribed By: OSWALDO Dictated By: Jacky Bates MD Electronically Authenticated By: Jacky Bates MD Signed Date/Time: 05/09/22319 DD/ 5 TD/TT: - Medical Decision Making Patient is a 47-year-old female with history of abdominal periumbilical hernia, constipation, and scleroderma who presents for abdominal pain stating I believe my bowels are twisted. Patient denies history of Crohn's. Did not require resection for hernia repair last year. Patient has follow-up with GI and 5 days for colonoscopy. Patient denies fevers or chills. However does endorse nausea. Symptoms are exacerbated by p.o. intake. There is secondary complaint of bloating. Patient is 47 and questions menopausal last menstrual cycle was October 2021. Patient endorses not sexually active. No concern for or STI. EKG: SR with non specific Twave abnormality, Heart score 0, LAKEISHA score 0, CT abdomen and pelvis: Colonic pneumatosis with fluid-filled moderately dilated loops of colon characteristic for ischemic colitis. No free air or portal vein gas, labs noted above troponin less than 0.01x2. WBCs normal, there is no fever , no chills, n/v is resolved, pt states moderate flatus after fleet enema self adminstered prior to being seen tonight, There is no n/v at this time, pt is tolerating po intake, pt is a/o x 3, ambualtory with steady gait, Vital signs improved, Pt advises will follow up with [facility] Dr. Stoner today, pt is well know by [facility] for same. Critical care attestation.: If time is entered above; I have spent that time in minutes in the direct care of this critically ill patient, excluding procedure time. ED Disposition Clinical Impression: Abdominal pain Qualifiers: Abdominal location: generalized Qualified Code(s): R10.84 - Generalized abdominal pain Disposition: HOME / SELF CARE / HOMELESS Is pt being admited?: No Does the pt Need Aspirin: No Condition: Stable Instructions: Abdominal Pain, Adult Additional Instructions: Take medications as prescribed by gastroenterology. Follow-up with Dr. Stoner today. Return to emergency department should symptoms worsen. Prescriptions: Simethicone [Gas-X Ultra Strength] 180 mg PO Q6H PRN #30 cap PRN Reason: Indigestion Referrals: JUMA STONER MD [Referring] - [facility] [Provider Group] - [facility] Forms: Work/School Release Form(ED) Time of Disposition: 04:54
--- NOTE | 2022-05-09 02:51 | XRay Report ---
ABDOMEN 2 VIEWS INDICATION / CLINICAL INFORMATION: abdominal pain constipation. COMPARISON: Abdomen 12/19/2016 FINDINGS: TUBES / LINES: None. BOWEL GAS PATTERN: Moderately dilated gas-filled loops of colon characteristic for ileus. FREE AIR / EXTRALUMINAL GAS: None seen. ADDITIONAL FINDINGS: Cholecystectomy clips right upper quadrant. Midline ventral abdominal wall herni a mesh. CHEST: Visualized chest shows no significant abnormality. IMPRESSION: 1. Moderate colonic ileus. Signer Name: Jacky Bates MD Signed: 05/09/2022 2:47 AM Workstation Name: [id number]
[2022-05-09] MEDS ORDERED: MORPHINE 4 MG/1 ML INJ IV ONE (03:03)
--- NOTE | 2022-05-09 03:24 | Cat Scan Report ---
CT ABDOMEN AND PELVIS WITHOUT CONTRAST INDICATION: abd pain. TECHNIQUE: Axial CT images were obtained through the abdomen and pelvis without IV contrast. All CT scans at [facility] location are performed using CT dose reduction for ALARA by means of automated exposure control. COMPARISON: None available. FINDINGS: LOWER CHEST: Mild bronchiectasis right middle and both lower lobes. LIVER: No significant abnormality. GALLBLADDER: Surgically absent BILE DUCTS: No significant abnormality. PANCREAS: No significant abnormality. SPLEEN: No significant abnormality. ADRENALS: No significant abnormality. RIGHT KIDNEY and URETER: No significant abnormality. LEFT KIDNEY and URETER: No significant abnormality. STOMACH and SMALL BOWEL: No significant abnormality. COLON: Pneumatosis sigmoid and ascending colon moderately dilated fluid-filled loops of colon. APPENDIX: Normal. PERITONEUM: No free fluid. No free air. No fluid collection. LYMPH NODES: No significant adenopathy. AORTA and ARTERIES: No significant abnormality. IVC and VEINS: No significant abnormality. URINARY BLADDER: No significant abnormality. REPRODUCTIVE ORGANS: No significant abnormality. ADDITIONAL FINDINGS: None. SKELETAL SYSTEM: No significant abnormality. IMPRESSION: 1. Colonic pneumatosis with fluid-filled moderately dilated loops of colon characteristic for ischemi c colitis. No free air or portal vein gas . Please correlate with lactic acid levels. Signer Name: Jacky Bates MD Signed: 05/09/2022 3:20 AM Workstation Name: [id number]
[2022-05-09] MEDS ORDERED: hydrALAZINE 25 MG TAB PO ONE (04:38)
[2022-05-09 04:50] VITALS: BP 151/90
[2022-05-09] MEDS ORDERED: SIMETHICONE 80 MG CHEW TAB PO ONE (04:59)
== END 2022-05-09 05:39 | disposition home or self-care (01) ==
LOC: ED 09:47
DX: R10.9 Unspecified abdominal pain (principal)
CPT/HCPCS: 36415; 71046; 74019; 74176; 80053; 84484; 85025; 93005; 96361; 96374; 96375; 99284; J2270; J2405; J7030; 74018